=== PATIENT | male | born 1950 | race Hispanic/Latino ===

== ENCOUNTER 2018-06-03 09:36 | Outpatient (CLI) | payer MEDICARE ==
--- NOTE | 2018-06-03 10:49 | ULT ---
HEPATIC SONOGRAM WITH DUPLEX EVALUATION: History: Hepatitis. FINDINGS: Gallbladder is not visualized and may be surgically absent. Common duct is 0.6 cm. Liver has a hetero geneous echotexture without focal mass or intrahepatic biliary dilatation. No free fluid. Spleen is 1 3.1 cm. No free fluid. Good color and spectral doppler flow within the hepatic and splenic arteries. Portal venous flow is t owards the liver. Hepatic venous flow towards the IVC. IMPRESSION: 1. Mild splenomegaly. No other findings of portal venous hypertension are apparent. 2. Gallbladder is not visualized. Surgically absent? POS: [facility]
== END 2018-06-03 09:37 | disposition home or self-care (01) ==
LOC: BICULT 09:36
PROVIDERS: ATTEND Internal Medicine Gastroenterology
DX: R76.8 Other specified abnormal immunological findings in serum (principal); R94.5 Abnormal results of liver function studies; R16.1 Splenomegaly, not elsewhere classified; Z90.49 Acquired absence of other specified parts of digestive tract
CPT/HCPCS: 76705